=== PATIENT | male | born 1990 | race African-American/Black ===

== ENCOUNTER 2017-12-13 22:42 | Emergency (ER) | payer SELFPAY ==
[~2017-12-13] VITALS: Ht 182.9 cm; Wt 90.7 kg
[2017-12-13 23:16] VITALS: BP 140/90
[2017-12-14] MEDS ORDERED: ONDANSETRON PF 4 MG/2 ML VIAL. IV ONE (00:15)
[2017-12-14] MEDS ORDERED: IV NORMAL SALINE 1000ML BAG 1,000 ML IV ONE (00:15)
[2017-12-14] MEDS ORDERED: KETOROLAC 30 MG/ML VIAL. IV ONE (00:15)
[2017-12-14] MEDS ORDERED: FAMOTIDINE 20 MG/2 ML VIAL IVP ONE (00:15)
--- NOTE | 2017-12-14 00:22 | PHYS DOC ---
Past Medical History Past Medical History: No Pertinent History Past Surgical History: No Surgical History Alcohol Use: Occasionally Drug Use: None Adult General Chief Complaint Chief Complaint: ABDOMINAL PAIN [facility] HPI Patient is a 27 year old male who presents with abdominal pain and vomiting for the past 14 hours. He states he began vomiting around 10am yesterday. He notes that he has been constipated and that his last bowel movement was 1 day ago. He notes that he has had constipation in the past. He rates his abdominal pain as a 9/10 and describes it as a sharp, stabbing pain. He notes chills, but denies any fevers or headache. He states he feels "dehydrated". Throughout the interview, he was slurring his words and difficult to understand. Patient is unable to provide any more information at this time. Review of Systems Review of Systems Constitutional: Notes chills; Denies fever Eyes: Denies change in visual acuity, redness, or eye pain HENT: Notes nasal congestion; Denies sore throat Respiratory: Denies cough or shortness of breath Cardiovascular: No additional information not addressed in HPI GI: Notes abdominal pain, nausea, vomiting, constipation; Denies bloody stools or diarrhea : Denies dysuria or hematuria Musculoskeletal: Notes back pain; Denies joint pain Integument: Denies rash or skin lesions Neurologic: Denies headache, focal weakness or sensory changes Complete systems were reviewed and found to be within normal limits, except as documented in this note. Family History Family History Denies Current Medications Current Medications Current Medications Medications (Trade) Dose Ordered Sig/Emmett Start Time Stop Time Status Last Admin Dose Admin Famotidine (Pepcid Vial) 20 mg 1X ONCE 12/14/17 00:15 12/14/17 00:23 DC 12/14/17 02:00 20 MG Info (CONTRAST GIVEN -- Rx MONITORING) 1 each PRN DAILY PRN 12/14/17 03:00 12/16/17 02:59 Iohexol (Omnipaque 300 Mg/ml) 75 ml 1X ONCE 12/14/17 03:00 12/14/17 03:01 DC 12/14/17 02:58 75 ML Ketorolac Tromethamine (Toradol 30mg Vial) 30 mg 1X ONCE 12/14/17 00:15 12/14/17 00:23 DC 12/14/17 02:00 30 MG Ondansetron HCl (Zofran) 4 mg 1X ONCE 12/14/17 00:15 12/14/17 00:23 DC 12/14/17 02:00 4 MG Sodium Chloride 1,000 ml @ 1,000 mls/hr 1X ONCE 12/14/17 00:15 12/14/17 01:14 DC 12/14/17 02:00 1,000 MLS/HR Allergies Allergies Allergies Coded Allergies Type Severity Reaction Last Updated Verified No Known Drug Allergies 12/14/17 No NKDA Physical Exam Physical Exam Constitutional: Appears dehydrated, in slight distress. HENT: Normocephalic, atraumatic, oropharynx dry, no oral exudates, nose normal. Eyes: Conjunctiva normal, no discharge. Neck: Normal range of motion, no tenderness, supple, no meningismus Cardiovascular: Heart rate regular rhythm, no murmur Lungs & Thorax: Bilateral breath sounds clear to auscultation Abdomen: Soft, no tenderness to palpation Skin: Warm, dry, no erythema, no rash Back: No tenderness, no CVA tenderness Extremities: No tenderness, ROM intact, no edema Neurologic: Alert and oriented X 2, no focal deficits noted Psychologic: Affect congruent, judgement normal, mood irritable Current Patient Data Vital Signs Vital Signs Date Time Temp Pulse Resp B/P (MAP) Pulse Ox O2 Delivery O2 Flow Rate FiO2 12/13/17 23:16 97.8 84 28 140/90 (107) 97 Room Air 97.8 Lab Values Laboratory Tests Test 12/14/17 01:53 12/14/17 04:00 White Blood Count 9.3 x10^3/uL (4.0-11.0) Red Blood Count 4.83 x10^6/uL (4.30-5.70) Hemoglobin 14.5 g/dL (13.0-17.5) Hematocrit 43.0 % (39.0-53.0) Mean Corpuscular Volume 89 fL (79-100) Mean Corpuscular Hemoglobin 30 pg (25-35) Mean Corpuscular Hemoglobin Concent 34 g/dL (31-37) Red Cell Distribution Width 13.6 % (11.5-14.5) Platelet Count 266 x10^3/uL (140-400) Neutrophils (%) (Auto) 85 % (31-73) H Lymphocytes (%) (Auto) 13 % (24-48) L Monocytes (%) (Auto) 2 % (0-9) Eosinophils (%) (Auto) 0 % (0-3) Basophils (%) (Auto) 0 % (0-3) Neutrophils # (Auto) 7.8 x10^3uL (1.8-7.7) H Lymphocytes # (Auto) 1.2 x10^3/uL (1.0-4.8) Monocytes # (Auto) 0.2 x10^3/uL (0.0-1.1) Eosinophils # (Auto) 0.0 x10^3/uL (0.0-0.7) Basophils # (Auto) 0.0 x10^3/uL (0.0-0.2) Sodium Level 142 mmol/L (136-145) Potassium Level 3.9 mmol/L (3.5-5.1) Chloride Level 104 mmol/L (98-107) Carbon Dioxide Level 25 mmol/L (21-32) Anion Gap 13 (6-14) Blood Urea Nitrogen 6 mg/dL (8-26) L Creatinine 1.0 mg/dL (0.7-1.3) Estimated GFR (Cockcroft-Gault) 108.5 BUN/Creatinine Ratio 6 (6-20) Glucose Level 125 mg/dL (70-99) H Calcium Level 9.5 mg/dL (8.5-10.1) Magnesium Level 1.7 mg/dL (1.8-2.4) L Total Bilirubin 0.3 mg/dL (0.2-1.0) Aspartate Amino Transferase (AST) 31 U/L (15-37) Alanine Aminotransferase (ALT) 39 U/L (16-63) Alkaline Phosphatase 66 U/L (46-116) Total Protein 8.0 g/dL (6.4-8.2) Albumin 4.0 g/dL (3.4-5.0) Albumin/Globulin Ratio 1.0 (1.0-1.7) Lipase 84 U/L (73-393) Ethyl Alcohol Level < 10 mg/dL (0-10) Urine Collection Type Unknown Urine Color Yellow Urine Clarity Clear Urine pH 8.5 Urine Specific [place] >=1.030 Urine Protein 100 mg/dL (NEG-TRACE) Urine Glucose (UA) Negative mg/dL (NEG) Urine Ketones (Stick) 40 mg/dL (NEG) Urine Blood Negative (NEG) Urine Nitrite Negative (NEG) Urine Bilirubin Negative (NEG) Urine Urobilinogen Dipstick 0.2 mg/dL (0.2 mg/dL) Urine Leukocyte Esterase Negative (NEG) Urine RBC 0 /HPF (0-2) Urine WBC 0 /HPF (0-4) Urine Squamous Epithelial Cells Occ /LPF Urine Bacteria 0 /HPF (0-FEW) Urine Mucus Slight /LPF Urine Opiates Screen Neg (NEG) Urine Methadone Screen Neg (NEG) Urine Barbiturates Neg (NEG) Urine Phencyclidine Screen Neg (NEG) Urine Amphetamine/Methamphetamine Neg (NEG) Urine Benzodiazepines Screen Neg (NEG) Urine Cocaine Screen Neg (NEG) Urine Cannabinoids Screen Pos (NEG) Urine Ethyl Alcohol Neg (NEG) Laboratory Tests 12/14/17 01:53 Laboratory Tests 12/14/17 01:53 EKG EKG [] Radiology/Procedures Radiology/Procedures CT abd and pelvis without contrast: No acute intra-abdominal findings. The partially visualized appendix appears unremarkable Course & Med Decision Making Course & Med Decision Making Luis Alberto Garcia is a 27 year old male who presents with abdominal pain, vomiting and constipation for the past 14 hours. Patient has slurred speech and is difficult to understand. Pertinent labs and imaging studies were obtained and reviewed (see chart for details). CT abd and pelvis without contrast showed no acute intra-abdominal findings. The partially visualized appendix appeared unremarkable. UDS was positive for cannabinoids. Patient's symptoms likely due to a viral gastroenteritis. Patient was given one time Ketorolac, famotidine, and Zofran, as well as 1L of fluids. Patient stable for discharge with outpatient follow-up with PCP. Discussed findings and plan with patient and family, who acknowledge understanding and agreement. Dragon Disclaimer Dragon Disclaimer This electronic medical record was generated, in whole or in part, using a voice recognition dictation system. Departure Departure Impression: Primary Impression: Abdominal pain Additional Impression: Nausea & vomiting Disposition: HOME, SELF-CARE Condition: STABLE Referrals: NO PCP (PCP) Patient Instructions: Abdominal Pain (Nonspecific), Nausea and Vomiting, Easy- to-Read Scripts Famotidine (PEPCID) 20 Mg Tablet 20 MG PO BID for 5 Days, #10 TAB Prov: MARCELA TOLLIVER DO 12/14/17 Ondansetron (ZOFRAN ODT) 4 Mg Tab.rapdis 1 TAB SL Q8HRS PRN for NAUSEA, #10 TAB Prov: MARCELA TOLLIVER DO 12/14/17 Hyoscyamine Sulfate (LEVSIN-SL) 0.125 Mg Tab.subl 1-2 TAB SL PRN Q4HRS PRN for PAIN, #14 TAB 0 Refills Prov: MARCELA TOLLIVER DO 12/14/17 Problem Qualifiers Primary Impression: Abdominal pain Abdominal location: generalized Qualified Codes: R10.84 - Generalized abdominal pain Additional Impression: Nausea & vomiting Vomiting type: unspecified Vomiting Intractability: unspecified Qualified Codes: R11.2 - Nausea with vomiting, unspecified MARCELA TOLLIVER DO Dec 14, 2017 00:22
[2017-12-14 02:02] LABS: BASO % 0 % (0-3); EOS % 0 % (0-3); HEMOGLOBIN 14.5 g/dL (13.0-17.5); LYMPH # 1.2 x10^3/uL (1.0-4.8); LYMPH % 13 % (24-48); MEAN CORPUSCULAR HEMOGLOBIN 30 pg (25-35); MEAN CORPUSCULAR HGB CONC 34 g/dL (31-37); MEAN CORPUSCULAR VOLUME 89 fL (79-100); MONO # 0.2 x10^3/uL (0.0-1.1); MONO % 2 % (0-9); NEUT # 7.8 x10^3uL (1.8-7.7); NEUT % 85 % (31-73); PLATELET COUNT 266 x10^3/uL (140-400); RED BLOOD COUNT 4.83 x10^6/uL (4.30-5.70); RED CELL DISTRIBUTION WIDTH 13.6 % (11.5-14.5); WHITE BLOOD COUNT 9.3 x10^3/uL (4.0-11.0)
[2017-12-14 02:16] LABS: CALCIUM 9.5 mg/dL (8.5-10.1); GFR 108.5; POTASSIUM 3.9 mmol/L (3.5-5.1)
[2017-12-14 02:21] LABS: MAGNESIUM 1.7 mg/dL (1.8-2.4); TOTAL BILIRUBIN 0.3 mg/dL (0.2-1.0)
[2017-12-14] MEDS ORDERED: IOHEXOL 300 MG/ML 100ML VIAL. IV ONE (03:00)
[2017-12-14] MEDS ORDERED: CONTRAST GIVEN. MC PRN (03:00)
--- NOTE | 2017-12-14 03:20 | RAD ---
Examination: CT of the abdomen pelvis with IV contrast HISTORY: History of right lower quadrant abdominal pain COMPARISON: None available TECHNIQUE: Axial CT images of the abdomen pelvis were performed with IV contrast. Coronal and sagittal reformats are performed Exposure: One or more of the following individualized dose reduction techniques were utilized for this examination: 1. Automated exposure control 2. Adjustment of the mA and/or kV according to patient size 3. Use of iterative reconstruction technique FINDINGS: The bibasilar lungs are clear. No evidence of free air identified in the abdomen. The visualized liver, spleen, adrenals grossly appears unremarkable the gallbladder is mildly distended. The stomach is mildly distended. The visualized pancreas grossly appears unremarkable. Small bowel is nondilated. The partially visualized appendix appears unremarkable. Urinary bladder is mildly distended. The bilateral kidneys enhance symmetrically. Evaluation of the pelvis is somewhat limited due to breathing motion artifact. The caliber of the aorta grossly appears unremarkable. No evidence of lytic bony destructive lesion. IMPRESSION: 1. No acute intra-abdominal findings. The partially visualized appendix appears unremarkable. Electronically signed by: Frederick Daly MD (12/14/2017 3:17 AM) [id number]
[2017-12-14] MEDS ORDERED: FAMO-63 PO (04:00)
[2017-12-14] MEDS ORDERED: ONDA4TAB10 SL (04:00)
[2017-12-14] MEDS ORDERED: HYOS0.1265 SL (04:00)
[2017-12-14 04:11] LABS: BILIRUBIN,URINE NEGATIVE (NEG); CLARITY,URINE CLEAR; COLOR,URINE YELLOW; NITRITE,URINE NEGATIVE (NEG); PH,URINE 8.5; PROTEIN,URINE 100 mg/dL (NEG-TRACE); UROBILINOGEN,URINE 0.2 mg/dL (0.2 mg/dL)
[2017-12-14 04:17] LABS: BARBITURATES NEG (NEG); BENZODIAZEPINES NEG (NEG); CANNABINOIDS POS (NEG); COCAINE NEG (NEG); METHADONE NEG (NEG); OPIATES NEG (NEG); PHENCYCLIDINE NEG (NEG)
[2017-12-14 04:19] LABS: BACTERIA,URINE 0 /HPF (0-FEW); RBC,URINE 0 /HPF (0-2); SQUAMOUS EPITHELIAL CELL,UR OCC /LPF; WBC,URINE 0 /HPF (0-4)
[2017-12-14 04:35] LABS: AMPHETAMINE/METHAMPHETAMINE NEG (NEG)
== END 2017-12-14 04:05 | disposition home or self-care (01) ==
LOC: ER 22:42
DX: R10.84 Generalized abdominal pain (principal); R11.2 Nausea with vomiting, unspecified; K59.00 Constipation, unspecified; E86.0 Dehydration
CPT/HCPCS: 36415; 74177; 80053; 80307; 81001; 83690; 83735; 85025; 96361; 96374; 96375; 99285; G0480; J1885; J2405; J7030; Q9967; S0028; G0479